=== PATIENT | female | born 1980 | race Caucasian/White ===

== ENCOUNTER 2016-10-13 05:51 | Day surgery (SDC) | payer BC ==
[~2016-10-13] VITALS: Ht 167.6 cm; Wt 62.6 kg
[~2016-10-13 05:51] MED LIST: ADVIL200 MG PO; ALLEGRA60 MG PO; BENADRYL25 MG PO; Motrin PO; Natalcare Rx,Pramile PO; Percocet 5/325,Endoc PO; Phenergan PO; Reglan PO; ZOFRAN4 MG PO
[2016-10-13 06:13] VITALS: BP 117/82
[2016-10-13] MEDS ORDERED: MOTRIN800 MG PO (07:21)
[2016-10-13] MEDS ORDERED: VICODIN 5-3001 EACH PO (07:21)
[2016-10-13 09:42] VITALS: BP 119/72
[2016-10-13 10:50] VITALS: BP 106/76
== END 2016-10-13 11:00 | disposition home or self-care (01) ==
LOC: SDC 05:51
DX: N92.0 Excessive and frequent menstruation with regular cycle (principal); N85.4 Malposition of uterus; Z87.11 Personal history of peptic ulcer disease; Z80.49 Family history of malignant neoplasm of other genital organs; Z91.013 Allergy to seafood; Z88.8 Allergy status to other drugs, medicaments and biological substances; Z91.018 Allergy to other foods; Z83.3 Family history of diabetes mellitus
CPT/HCPCS: 88305; J0131; J1100; J1170; J1885; J2250; J2405; J3010